=== PATIENT | female | born 2000 | race Two or more races ===

== ENCOUNTER 2020-08-02 09:17 | Emergency (ER) | payer OTHER ==
[~2020-08-02] VITALS: Ht 162.6 cm; Wt 57.2 kg
[2020-08-02] MEDS ORDERED: JUNEL 1 MG-201 EACH (09:45)
[2020-08-02] MEDS ORDERED: VISTARIL25 MG PO (13:34)
== END 2020-08-02 13:57 | disposition home or self-care (01) ==
LOC: ER 09:17
DX: R42 Dizziness and giddiness (principal); G25.2 Other specified forms of tremor; F41.8 Other specified anxiety disorders; R53.81 Other malaise

== ENCOUNTER → 2020-09-12 | Outpatient (CLI) | payer OTHER ==
[~2020-09-12] MED LIST: JUNEL 1 MG-201 EACH; ONDANSETRON ODT4 MG PO; PEPCID AC20 MG PO; VISTARIL25 MG PO
== END | disposition home or self-care (01) ==
LOC: PPH VACUNA 08:00
DX: Z23 Encounter for immunization (principal)

== ENCOUNTER 2020-09-14 06:26 | Emergency (ER) | payer OTHER ==
[~2020-09-14] VITALS: Ht 160 cm; Wt 55.3 kg
[~2020-09-14 06:26] MED LIST changes: -ONDANSETRON ODT4 MG PO; -PEPCID AC20 MG PO
== END 2020-09-14 08:42 | disposition home or self-care (01) ==
LOC: ER 06:26
DX: B34.9 Viral infection, unspecified (principal); R53.81 Other malaise; T50.Z95A Adverse effect of other vaccines and biological substances, initial encounter

== ENCOUNTER 2021-01-27 11:02 | Emergency (ER) | payer OTHER ==
[~2021-01-27] VITALS: Ht 160 cm; Wt 56.2 kg
[2021-01-27] MEDS ORDERED: VISTARIL25 MG PO (11:57)
[2021-01-27] MEDS ORDERED: PEPCID AC20 MG PO (17:00)
[2021-01-27] MEDS ORDERED: ONDANSETRON ODT4 MG PO (17:00)
== END 2021-01-27 17:21 ==
LOC: ER 11:02
DX: K29.60 Other gastritis without bleeding (principal); E86.0 Dehydration; Z03.818 Encounter for observation for suspected exposure to other biological agents ruled out

== ENCOUNTER 2021-02-15 09:10 | Outpatient (CLI) | payer OTHER ==
[~2021-02-15 09:10] MED LIST changes: +ONDANSETRON ODT4 MG PO; +PEPCID AC20 MG PO
== END 2021-02-15 10:00 | disposition home or self-care (01) ==
LOC: PPH VACUNA 09:10
PROVIDERS: ATTEND Emergency Medicine Pediatric Emergency Medicine
DX: Z23 Encounter for immunization (principal)

== ENCOUNTER 2021-11-19 14:27 | Outpatient (CLI) | payer OTHER | END 2021-11-19 15:41 | disposition home or self-care (01) | LOC: PRENATAL 14:27 | PROVIDERS: ATTEND Obstetrics & Gynecology Maternal & Fetal Medicine | DX: O35.0XX0 Maternal care for (suspected) central nervous system malformation in fetus, not applicable or unspecified (principal); O35.3XX0 Maternal care for (suspected) damage to fetus from viral disease in mother, not applicable or unspecified; Z3A.23 23 weeks gestation of pregnancy ==